=== PATIENT | male | born 1960 | race Asian ===

== ENCOUNTER 2019-01-03 12:57 | Inpatient (IN) | payer OTHER ==
[~2019-01-03] VITALS: Ht 152.4 cm; Wt 66.5 kg
[2019-01-03] MEDS ORDERED: GLUCOPHAGE PO (19:02)
[2019-01-03] MEDS ORDERED: MIRALAX17 GM PO (19:02)
[2019-01-03] MEDS ORDERED: PRINIVIL5 M1 PO (19:02)
[2019-01-03] MEDS ORDERED: LIPITOR 40MG TA40 MG PO (19:02)
[2019-01-03] MEDS ORDERED: TYLENOL 8 HOUR650 M1 PO (19:03)
[2019-01-03] MEDS ORDERED: HEPARIN SO5000 UNIT2 SC (19:04)
[2019-01-03] MEDS ORDERED: NOVOLOG 100U100 U/ML SQ (19:05)
[2019-01-03] MEDS ORDERED: NICOTINE21 MG/24 H TD (19:06)
[2019-01-03] MEDS ORDERED: LABETALOL IV (19:06)
[2019-01-03] MEDS ORDERED: MEDI-FIRST ASP325 MG PO (19:07)
[2019-01-03] MEDS ORDERED: FISH OIL1 IU PO (20:53)
[2019-01-03] MEDS ORDERED: CALCIUM 600600 M2 PO (20:53)
[2019-01-03] MEDS ORDERED: MULTIVITAMIN1 SGL PO (20:55)
[2019-01-03 21:45] VITALS: BP 162/81
[2019-01-04 06:07] VITALS: BP 146/79
[2019-01-04 06:46] LABS: ALBUMIN 3.4 g/dL (3.5-5.0)
[2019-01-04 06:47] LABS: EOS # 0.2 (0.04-0.40); EOS % 2.9 % (0.0-4.0); HEMATOCRIT 45.3 % (42.0-52.0); HEMOGLOBIN 15.8 g/dL (13.5-18.0); LYMPH# 1.3 (1.50-4.00); MEAN CELL VOLUME 87 fl (78-100); MEAN CORPUSCULAR HEMOGLOBIN 30 pg (27-31); MEAN CORPUSCULAR HGB CONC 35 g/dL (33-37); MEAN PLATELET VOLUME 11.2 fl (7.4-10.4); MONO # 0.6 (0.20-0.80); PLATELET COUNT 120 K/mm3 (130-400); RED BLOOD COUNT 5.19 M/mm3 (4.20-5.60); RED CELL DISTRIBUTION WIDTH 12.5 % (11.5-14.5); WHITE BLOOD COUNT 6.2 K/mm3 (4.8-10.8)
[2019-01-04 06:49] LABS: TOTAL PROTEIN 6.7 g/dL (6.4-8.3)
[2019-01-04 06:50] LABS: TOTAL BILIRUBIN 0.7 mg/dL (0.2-1.2)
[2019-01-04 18:27] VITALS: BP 163/86
[2019-01-05 06:18] VITALS: BP 143/86
[2019-01-05 18:09] VITALS: BP 166/88
[2019-01-06 06:04] VITALS: BP 141/75
[2019-01-06 17:48] VITALS: BP 170/91
[2019-01-06 18:50] VITALS: BP 152/84
[2019-01-07 06:06] VITALS: BP 130/77
[2019-01-07 18:24] VITALS: BP 164/84
[2019-01-08 06:29] VITALS: BP 127/80
[2019-01-08 18:22] VITALS: BP 135/80
[2019-01-09 06:21] VITALS: BP 142/87
[2019-01-09 12:54] LABS: BASO # 0.1 (0.02-0.10); EOS # 0.2 (0.04-0.40); HEMATOCRIT 45.5 % (42.0-52.0); HEMOGLOBIN 15.4 g/dL (13.5-18.0); LYMPH# 1.5 (1.50-4.00); MEAN CELL VOLUME 90 fl (78-100); MEAN CORPUSCULAR HEMOGLOBIN 31 pg (27-31); MEAN CORPUSCULAR HGB CONC 34 g/dL (33-37); MEAN PLATELET VOLUME 10.7 fl (7.4-10.4); MONO # 0.7 (0.20-0.80); NEU # 4.8 (1.40-6.50); PLATELET COUNT 138 K/mm3 (130-400); RED BLOOD COUNT 5.04 M/mm3 (4.20-5.60); RED CELL DISTRIBUTION WIDTH 12.6 % (11.5-14.5); WHITE BLOOD COUNT 7.2 K/mm3 (4.8-10.8)
[2019-01-09 12:57] LABS: POTASSIUM 4.2 mmol/L (3.5-5.1)
[2019-01-09 12:58] LABS: CALCIUM 9.2 mg/dL (8.3-10.5)
[2019-01-09 18:48] VITALS: BP 136/80
[2019-01-10 06:03] VITALS: BP 142/82
[2019-01-10 18:36] VITALS: BP 143/80
[2019-01-11 06:21] VITALS: BP 150/87
[2019-01-11 18:00] VITALS: BP 158/93
[2019-01-12 06:22] VITALS: BP 132/86
[2019-01-12 18:06] VITALS: BP 128/71
[2019-01-13 06:23] VITALS: BP 133/74
[2019-01-13 18:26] VITALS: BP 143/82
[2019-01-14 06:24] VITALS: BP 147/79
[2019-01-14 18:51] VITALS: BP 146/87
[2019-01-15 06:20] VITALS: BP 136/75
[2019-01-15 07:30] VITALS: BP 142/88
[2019-01-15 18:00] VITALS: BP 148/77
[2019-01-16 06:11] VITALS: BP 134/69
[2019-01-16 18:36] VITALS: BP 143/82
[2019-01-17 06:22] VITALS: BP 153/73
[2019-01-17 18:40] VITALS: BP 152/84
[2019-01-18 06:24] VITALS: BP 116/68
[2019-01-18 18:43] VITALS: BP 131/76
[2019-01-19 06:09] VITALS: BP 144/85
[2019-01-19 18:34] VITALS: BP 144/88
[2019-01-20 06:14] VITALS: BP 123/66
[2019-01-20 18:46] VITALS: BP 125/70
[2019-01-21 06:05] VITALS: BP 169/72
[2019-01-21 18:23] VITALS: BP 127/69
[2019-01-22 06:18] VITALS: BP 148/74
[2019-01-22] MEDS ORDERED: FISH OIL 1000MG1 CAP PO (09:53)
[2019-01-22] MEDS ORDERED: NICOTINE21 MG/24 H TD (09:53)
[2019-01-22] MEDS ORDERED: LIPITOR 40MG TA40 MG PO (09:53)
[2019-01-22] MEDS ORDERED: PRINIVIL5 M1 PO (09:54)
[2019-01-22] MEDS ORDERED: CALCIUM 600600 M2 PO (09:54)
[2019-01-22] MEDS ORDERED: MEDI-FIRST ASP325 MG PO (09:54)
[2019-01-22] MEDS ORDERED: HEALTHYLAX17 GM/Dose PO (09:54)
[2019-01-22] MEDS ORDERED: SENNA-TIME S 501 TAB PO (09:55)
[2019-01-22] MEDS ORDERED: GLUCOPHAGE PO (09:55)
[2019-01-22] MEDS ORDERED: PANTOPRAZOLE SO40 MG PO (09:55)
[2019-01-22] MEDS ORDERED: MULTIVITAMIN1 SGL PO (09:56)
[2019-01-22 11:58] VITALS: BP 148/74
== END 2019-01-22 13:11 | DRG 948 ==
LOC: MED/SURG 12:57
PROVIDERS: Physician Assistant; ADMIT Nurse Practitioner Family
DX: R53.81 Other malaise (principal); I69.354 Hemiplegia and hemiparesis following cerebral infarction affecting left non-dominant side; I10 Essential (primary) hypertension; E11.65 Type 2 diabetes mellitus with hyperglycemia; Z72.0 Tobacco use; F10.10 Alcohol abuse, uncomplicated; K59.00 Constipation, unspecified; R22.2 Localized swelling, mass and lump, trunk
CPT/HCPCS: J1650; J1815